=== PATIENT | male | born 2005 | race Hispanic/Latino ===

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

== ENCOUNTER 2025-02-22 11:07 | Emergency (ER) | payer OTHER ==
--- OUTSIDE RECORDS SUMMARY | 2025-02-22 11:10 | XMS REPORT | Continuity of Care Document ---
Author Name Unknown Address [address] [facility] [address] [place] [address] Organization [facility] Address [address] [facility] [address] [place] [address] Care Team Providers Care Welding Manager Name Role Phone Tomi Calle Primary Care Physician [phone] Doctor Unassigned, [place] Attending Clinician U TEGAN Lee Attending Clinician UnavailTegan Raymundo Attending Clinician [phone] Pepe Jaeger MD Attending Clinician PEPE JAEGER Attending Clinician Unavailable Doctor Unassigned, [place] Attending Clinician U staci Payers Payer Name Policy Type Policy Number Effective Date Expirati on Date Source Problems Condition Name Condition Details Condition Category Status Onset Date Resolution Date Last Treatment Date Treating Clinician Comments Source Obesity, Class III, BMI 40-49.9 (morbid obesity) Obesity, Class III, BMI 40-49.9 (morbid obesity) Disease Active 06-01 00:00: 00 [facility] Obesity, Class III, BMI 40-49.9 (morbid obesity) Obesity, Class III, BMI 40-49.9 (morbid obesity) Disease Active 06-01 00:00: 00 [facility] Adjustment disorder with mixed anxiety and depressed mood Adjustment disorder with mixed anxiety and depressed mood Disease Active 01-19 00:00: 00 [facility] Adjustment disorder with mixed anxiety and depressed mood Adjustment disorder with mixed anxiety and depressed mood Disease Active 01-19 00:00: 00 [facility] ADHD (attention deficit hyperactiv ity disorder), combined type ADHD (attention deficit hyperactiv ity disorder), combined type Disease Active 2014-10 1- 00:00: 00 [facility] Medication management $ Medication management $ Disease Active 07-06 00:00: 00 Overview: 06/02/14 Increase Focalin XR to 20 mg in AM give a dose on [...] Lexapro 10 mg08/26/20 15 Stop Focalin 5 mg2 16 Increase to Lexapro 20 mg 6 [...] 9 Stop Wellbutri n, patient preferenc e [facility] Hyperpheny lalaninemi a Hyperpheny lalaninemi a Disease Active 06-03 00:00: 00 [facility] Speech 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 Speech 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 Disease Active 06-03 00:00: 00 [facility] Attention deficit hyperactiv ity disorder (ADHD) Attention deficit hyperactiv ity disorder (ADHD) Disease Active 05-07 00:00: 00 Overview: ICD10 Diagnosis Term Sifting Operator Utility [facility] Obesity, pediatric Obesity, pediatric Disease Resolve d 2014-10 1-05 00:00: 00 2016-06-01 00:00:00 2016-06-01 10:36:07 [facility] Morbidly obese Morbidly obese Disease Resolve d 05-07 00:00: 00 2016-06-01 00:00:00 2016-06-01 10:36:14 [facility] Pityriasis alba Pityriasis alba Disease Resolve d 05-07 00:00: 00 2014-06-02 00:00:00 2014-06-02 17:01:11 [facility] Phenylketo dwayne (PKU) Phenylketo dwayne (PKU) Disease Resolve d 2006-10 0 00:00: 00 2014-06-02 00:00:00 2014-06-02 16:59:56 [facility] Allergies, Adverse Reactions, Alerts Allergy Name Allergy Type Status Severity Reaction(s) Onset Date Inactive Date Treating Clinician Comments Source NO KNOWN ALLERGIE S Drug Class Active [facility] Social History Social Habit Start Date Stop Date Quantity Comments Source Sexual orientation U [facility] History of Social function 2019-05-02 00:00:00 2019-05-02 00:00:00 [facility] Alcohol intake 2018-05-29 00:00:00 2018-05-29 00:00:00 [facility] Alcoholic beverage intake 2016-08-12 00:00:00 2016-08-12 00:00:00 Current non-drinker of alcohol (finding) [facility] Tobacco use and exposure 2016-02-18 00:00:00 2016-02-18 00:00:00 Smokeless tobacco non-user [facility] Sex assigned at 2005 00:00:00 2005 00:00:00 [facility] Smoking Status Start Date Stop Date Source Never smoked tobacco [facility] Medications Ordered Medication Name Filled Medication Name Start Date Stop Date Current Medication? Ordering Clinician Indication Dosage Frequency Signature (SIG) Comments Components Source Dexmethylph enidate (FOCALIN XR) 30 mg MP50 2- 00:00: 00 Yes [id number] 30mg Take 30 mg by mouth every morning. [facility] amantadine HCL 100 mg capsule 11-12 00:00: 00 Yes [id number] 200mg Take 2 capsules by mouth daily. [facility] Dexmethylph enidate (FOCALIN XR) 30 mg MP50 11-12 00:00: 00 12-18 00:00 :00 No [id number] 30mg Take 30 mg by mouth every morning. [facility] amantadine HCl 100 mg capsule 05-28 00:00: 00 11-12 00:00 :00 No [id number] 200mg Take 2 capsules by mouth daily. [facility] Dexmethylph enidate (FOCALIN XR) 30 mg MP50 05-28 00:00: 00 11-12 00:00 :00 No [id number] 30mg Take 30 mg by mouth every morning. [facility] amantadine HCl 100 mg capsule 4-30 00:00: 00 05-28 00:00 :00 No [id number] 200mg Take 2 capsules by mouth daily. [facility] Dexmethylph enidate (FOCALIN XR) 30 mg MP50 4-30 00:00: 00 05-28 00:00 :00 No [id number] 30mg Take 30 mg by mouth every morning. [facility] ergocalcife rol, vitamin D2, (VITAMIN D ORAL) 2017-10 15:48: 23 Yes Take by mouth. [facility] pediatric multivitami n no.28 (CHILD MULTIVITAMI NS ORAL) 2017-10 15:48: 23 Yes Take by mouth. [facility] Vital Signs Vital Name Observation Time Observation Value Comments S cyce Heart rate 2019-11-25 17:05:00 92 /min [facility] Body temperature 2019-11-25 17:05:00 36.5 Valerie [facility] Respiratory rate 2019-11-25 17:05:00 20 /min [facility] Body height 2019-11-25 17:05:00 167.6 cm [facility] Body weight 2019-11-25 17:05:00 162.1 kg [facility] BMI 2019-11-25 17:05:00 57.71 kg/m2 [facility] Systolic blood pressure 2019-11-25 17:05:00 130 mm[Hg] [facility] Diastolic blood pressure 2019-11-25 17:05:00 85 mm[Hg] [facility] Heart rate 2019-11-25 17:05:00 92 /min Un[facility] Body temperature 2019-11-25 17:05:00 36.5 Valerie [facility] Respiratory rate 2019-11-25 17:05:00 20 /min [facility] Body height 2019-11-25 17:05:00 167.6 cm [facility] Body weight 2019-11-25 17:05:00 162.1 kg [facility] BMI 2019-11-25 17:05:00 57.71 kg/m2 [facility] Systolic blood pressure 2019-11-25 17:05:00 130 mm[Hg] [facility] Diastolic blood pressure 2019-11-25 17:05:00 85 mm[Hg] [facility] Body weight 2019-11-12 17:18:00 161.7 kg [facility] BMI 2019-11-12 17:18:00 57.98 kg/m2 [facility] Systolic blood pressure 2019-11-12 17:18:00 127 mm[Hg] [facility] Diastolic blood pressure 2019-11-12 17:18:00 84 mm[Hg] [facility] Heart rate 2019-11-12 17:18:00 76 /min [facility] Body temperature 2019-11-12 17:18:00 36.22 Valerie [facility] Respiratory rate 2019-11-12 17:18:00 20 /min [facility] Body height 2019-11-12 17:18:00 167 cm [facility] Systolic blood pressure 2019-05-28 15:07:00 126 mm[Hg] [facility] Diastolic blood pressure 2019-05-28 15:07:00 80 mm[Hg] [facility] Heart rate 2019-05-28 15:07:00 84 /min [facility] Body temperature 2019-05-28 15:07:00 35.5 Valerie [facility] Respiratory rate 2019-05-28 15:07:00 20 /min [facility] Body height 2019-05-28 15:07:00 167.5 cm [facility] Body weight 2019-05-28 15:07:00 159.1 kg [facility] BMI 2019-05-28 15:07:00 56.71 kg/m2 [facility] Procedures Procedure Date / Time Performed Performing Clinician Source NO SHOW OR MISSED APPOINTMENT POLICY ACKNOWLEDGEMENT 2019-11-12 17:12:10 Doctor Unassigned, [place] [facility] US ABDOMEN LIMITED 2016-09-14 21:48:00 Zhang Valenzuela [facility] Encounters Start Date/Time End Date/Time Encounter Type Admission Type Attending Clinicians Care Facility Care Department Encounter ID Source 2022-01-03 15:04:03 Outpatient [facility] [id number] [facility] 2016-09-12 00:00:00 2024-12-07 04:01:44 Orders Only Doctor Unassigned, [place] Doctor Unassigned, [place] [facility] [id number] [facility] 2021-03-01 00:00:00 2021-03-01 00:00:00 Outpatient [facility] PBXFGKIKDM [id number] [facility] 2020-09-30 08:45:00 2020-09-30 08:45:00 Outpatient TEGAN HORN [facility] [id number] [facility] 2019-12-18 00:00:00 2019-12-18 00:00:00 RefTegan Church [facility] [id number] [facility] 2019-11-25 10:57:09 2019-11-25 11:27:09 Office Visit Pepe Jaeger [facility] [id number] 2019-11-25 10:57:09 2019-11-25 11:27:09 Office Visit Pepe Jaeger [facility] [id number] [facility] 2019-11-25 11:00:00 2019-11-25 11:00:00 Outpatient R PEPE JAEGER [facility] [id number] [facility] 2019-11-12 11:14:30 2019-11-12 12:01:15 Office Visit Tegan Madsen [facility] [id number] [facility] 2019-11-12 00:00:00 2019-11-12 00:00:00 Orders Only Doctor Unassigned, [place] [facility] [id number] [id number] [facility] 2019-11-12 00:00:00 2019-11-12 00:00:00 Telephone Tegan Madsen [facility] [id number] [facility] 2019-05-28 10:02:43 2019-05-28 10:47:43 Office Visit Kenneth Madsenine Naida [facility] [id number] [facility] Results Test Description Test Time Test Comments Results Resul t Comments Source US ABDOMEN LIMITED 2016-08-24 3 21:54:00 *.*.*.*.*.*.*.*.*. *.*.*.*.*FINAL*.*. *.*.*.*.*.*.*.*.*. *.*.*.*HISTORY: 11 year old with obesity. Please evaluate for fatty liver. TECHNIQUE: Liver was evaluated in multiple planes with the patient indifferent positions. Color imaging is utilized. FINDINGS: Liver measured 13.24 mm in length which is within normal limits.However, increased echotexture of the liver parenchyma was notedthroughout, consistent with diffuse mild hepatic steatosis. No free fluidis seen in the right upper abdomen. Common hepatic duct is 3.0 mm. Hepaticand portal venous system appeared patent. CONCLUSION: Normal sized liver with diffuse mild hepatic steatosis. ?Personally interpreted by: ANSLEY CRESPO MD /Signed/ ANSLEY CRESPO MD [facility]
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
[2025-02-22 13:59] VITALS: TEMP 98.1
[2025-02-22 14:01] VITALS: BP 138/87; O2SAT 100
== END 2025-02-22 13:36 | disposition home or self-care (01) ==
LOC: ER 11:07
DX: M54.2 Cervicalgia (principal); M54.50 Low back pain, unspecified; V49.50XA Passenger injured in collision with unspecified motor vehicles in traffic accident, initial encounter
CPT/HCPCS: 71045; 72040; 72100; 99282